=== PATIENT | male | born 1975 | race Two or more races ===

== ENCOUNTER 2019-04-18 16:39 | Outpatient (CLI) | payer MEDICAID, SELFPAY ==
--- NOTE | 2019-04-18 | USR_ITS ---
PROCEDURE INFORMATION: Exam: US Duplex Left Lower Extremity Veins, Limited Exam date and time: 04/18/2019 5:12 PM Age: 43 years old Clinical indication: Pain; Leg, lower; Left; Patient HX: Patient reports prior dvt. Is currently taking eliquis. ; Additional info: Pain in lt lower leg TECHNIQUE: Imaging protocol: Real-time Duplex ultrasound of the Left Lower Extremity with 2-D rinaldi scale, color Doppler flow and spectral waveform analysis with image documentation. Limited exam focused on the left lower extremity veins. COMPARISON: No relevant prior studies available. FINDINGS: Left deep veins: Unremarkable. The common femoral, femoral, proximal profunda femoral and popliteal veins are patent without thrombus. Normal Doppler waveforms. Normal compressibility and/or augmentation response. Left superficial veins: Unremarkable. Saphenofemoral junction is patent without thrombus. Soft tissues: Unremarkable. US/[place] [id number] IMPRESSION: No acute findings. No evidence of deep vein thrombosis.
== END 2019-04-18 16:40 | disposition home or self-care (01) ==
LOC: RAD 17:01
PROVIDERS: Visit Provider Nurse Practitioner Family
DX: M79.662 Pain in left lower leg (principal); Z79.01 Long term (current) use of anticoagulants; Z86.718 Personal history of other venous thrombosis and embolism
CPT/HCPCS: 93971